=== PATIENT | male | born 1980 | race Caucasian/White ===

== ENCOUNTER 2017-01-05 16:55 | Emergency (ER) | payer SELFPAY ==
--- NOTE | ~2017-01-05 | ER ---
PATIENT'S NAME: [facility] AGE: 36 Y [address] ROOM: [place] [address] LOCATION: [facility] ADMIT DATE: 01/05/2017 ER/Outpatient Report DISCHARGE DATE: 01/05/2017 FAMILY PHYSICIAN: PHYSICIAN, NO ATTENDING PHYSICIAN: Jose Ruiz Time of Arrival: 1655 hours. Time of Evaluation: 1715 hours. CHIEF COMPLAINT: Elevated blood pressure. HISTORY OF PRESENT ILLNESS: This is a 36-year-old male, who presents to the ER. He states he was found to have some high blood pressure. He states he is starting a new job in [employer] tomorrow, and his blood pressure was high at the [employer] [facility] today and needs clearance to work tomorrow. The patient states he has had no headache, no visual changes. No chest pain, no shortness of breath. He states he did have some elevated blood pressure a few months ago, but he never went into have it rechecked again. He states that he has had no troubles with bowel movements. No trouble with urine. Denies any other problems at this time. ALLERGIES: NO KNOWN ALLERGIES. MEDICATIONS: Please see medication list in nurse's notes. PAST MEDICAL HISTORY: Negative. PAST SURGICAL HISTORY: None. SOCIAL HISTORY: He smokes 3/4th pack of cigarettes a day, drinks alcohol as well every day. REVIEW OF SYSTEMS: All systems were reviewed and were negative with the exception of those discussed in the HPI. PHYSICAL EXAMINATION: VITAL SIGNS: Height 5 feet 9 inches stated, weight 88.5 kg taken, blood pressure is 167/111, pulse 99, respirations 16, temperature 97.7 degrees PATIENT'S NAME: [facility] AGE: 36 Y [address] ROOM: [place] [address] LOCATION: [facility] ADMIT DATE: 01/05/2017 ER/Outpatient Report DISCHARGE DATE: 01/05/2017 FAMILY PHYSICIAN: PHYSICIAN, NO ATTENDING PHYSICIAN: Jose Ruiz tympanically, and saturations 96% on room air. Jena Coma Score is 15. GENERAL: An alert, calm, well-developed male, in no acute distress. HEENT. Head: Normocephalic. Eyes: Pupils are equal and reactive to light. Does display moist mucous membranes. LUNGS: Clear to auscultation bilaterally. HEART: Regular rate and rhythm. ABDOMEN: Soft, nontender. He has good bowel sounds throughout. EXTREMITIES: No clubbing or cyanosis. He does have full range of motion of all limbs. SKIN: Warm, dry, and intact. LABORATORY DATA AND X-RAYS: CBC: White count is 9.4, hemoglobin is 17.4, platelets 378, ANC is 5.7. PTT 131, pro-time and INR were not performed because his blood was too lipemic. Urinalysis was negative for any infection. Protein was 15, ketones were negative, leukocytes negative, nitrites negative. EKG shows sinus rhythm. The rest of his labs are still pending. IMPRESSION: Hypertension. ASSESSMENT AND PLAN: We did give the patient clonidine here in the emergency room and did monitor him. The patient states he does not want to wait for the rest of his lab work to come back. He states that he would like to know the rest of his results, but he has too much to do at home to wait around for those results. I did discuss the patient's care with Dr. Ruiz as well as Dr. Enamorado. I am going to have the patient sign out AMA due to the fact that his blood work is still pending, and he is having some elevated blood pressure. I am going to send him home with a prescription for hydrochlorothiazide to use. I will give him 2 weeks' worth of that, and I want him to follow up with [facility]. I did give him a business card for that as well. He needs to monitor his symptoms closely. If anything worsens, he should return promptly to the emergency room. The patient understands and agrees with care. LILI ELLIOTT PA-C FOR MD JOYCE WEIR/aaron /[id number] d: 01/06/1728 t: 01/15/17721, OUTPATIENT REPORT
[2017-01-05 17:41] LABS: BILIRUBIN URINE NEGATIVE (NEGATIVE); BLOOD URINE 10 /UL (NEGATIVE); COLOR URINE YELLOW (YELLOW); GLUCOSE URINE NEGATIVE (NEGATIVE); KETONE URINE NEGATIVE (NEGATIVE); LEUKOCYTES URINE NEGATIVE /UL (NEGATIVE); NITRITE URINE NEGATIVE (NEGATIVE); PROTEIN URINE 15 mg/dL (NEGATIVE); TURBIDITY URINE CLEAR (CLEAR); UROBILINOGEN URINE NORMAL (NORMAL)
[2017-01-05 17:46] LABS: BASOPHIL # 0.1 K/uL (0.0-0.2); BASOPHIL % 1.5 %; EOSINOPHIL # 0.5 K/uL (0.0-0.5); EOSINOPHIL % 5.3 %; HEMATOCRIT 45.8 % (37.0-53.0); IMMATURE GRANULOCYTE % 0.3 %; LYMPHOCYTE # 2.6 K/uL (0.8-4.0); LYMPHOCYTE % 27.6 %; MCV 91.1 fl (83.0-98.0); MONOCYTE # 0.5 K/uL (0.0-1.0); MONOCYTE % 5.3 %; MPV 9.6 fl (9.4-12.4); NEUTROPHIL # (ANC) 5.7 K/uL (1.4-9.0); NRBC % 0 /100WBC (0-0.00); PLATELET COUNT 378 K/uL (150-450); RBC 5.03 M/uL (4.00-6.00); RDW-CV 12.4 % (11.9-14.6); WBC 9.4 K/uL (4.0-11.0)
[2017-01-05 18:05] LABS: BACTERIA URINE NEGATIVE (NEGATIVE); EPITHELIAL URINE 0-2 #/HPF (NEGATIVE); RBC URINE 0-2 #/HPF (NEGATIVE); WBC URINE RARE #/HPF (NEGATIVE)
[2017-01-05 18:07] LABS: ALBUMIN 4.3 gm/dL (3.5-5.0); ALK PHOS 72 IU/L (33-138); CALCIUM 8.3 mg/dL (8.5-10.5); CHLORIDE 105 mMol/L (96-110); CO2 23 mMol/L (22-32); CREATININE 1.2 mg/dL (0.6-1.3); SODIUM 136 mMol/L (135-145); TOTAL BILIRUBIN 0.6 mg/dL (0.0-1.5)
[2017-01-05 18:34] LABS: HEMOGLOBIN 17.4 g/dL (12.0-17.0); MCH 34.6 pg (27.0-34.0)
[2017-01-05 18:41] LABS: PTT 31 SECONDS (23-30)
[2017-01-05 18:44] LABS: CPK 362 IU/L (35-332); MAGNESIUM 2.2 mg/dL (1.8-2.6)
[2017-01-05 19:49] LABS: AST 68 IU/L (10-40); BLOOD UREA NITROGEN 10 mg/dL (6-24); TOTAL PROTEIN 8.4 g/dL (6.0-8.4)
[2017-01-05 19:50] LABS: ALT 53 IU/L (12-78)
== END 2017-01-05 19:00 | disposition disaster alternative care site (69) ==
LOC: GMED 16:55
PROVIDERS: Emergency Medicine
DX: I10 Essential (primary) hypertension (principal); F17.210 Nicotine dependence, cigarettes, uncomplicated; Z79.899 Other long term (current) drug therapy
CPT/HCPCS: A9270